=== PATIENT | female | born 1960 | race Caucasian/White ===

== ENCOUNTER 2017-10-18 16:37 | Emergency (ER) | payer OTHER ==
[~2017-10-18] VITALS: Ht 157.5 cm; Wt 86.2 kg
[~2017-10-18 16:37] MED LIST: IBUP400 PO; PROP30DR BOTHEYES; Pain Relief500 MG PO
[2017-10-18 17:04] LABS: BASOPHILS ABSOLUTE AUTO 0.02 K/mm3 (0.00-0.23); BASOPHILS PERCENT AUTO 0 % (0-2); EOSINOPHILS ABSOLUTE AUTO 0.01 K/mm3 (0.00-0.68); EOSINOPHILS PERCENT AUTO 0 % (0-6); Hematocrit 46.1 % (33.0-51.0); Hemoglobin 15.2 g/dL (11.5-16.0); IMMATURE GRAN ABSOLUTE AUTO 0.05 K/mm3 (0.00-0.10); IMMATURE GRAN PERCENT AUTO 0 % (0-1); LYMPHOCYTES ABSOLUTE AUTO 2.41 K/mm3 (0.84-5.20); LYMPHOCYTES PERCENT AUTO 15 % (21-46); MONOCYTES ABSOLUTE AUTO 0.65 K/mm3 (0.16-1.47); MONOCYTES PERCENT AUTO 4 % (4-13); Mean Corpuscular HGB 28.6 pg (26.0-34.0); Mean Corpuscular Volume 87 fL (80-100); Mean Platelet Volume 10.3 fL (9.1-12.4); NEUTROPHILS ABSOLUTE AUTO 13.24 K/mm3 (1.96-9.15); NEUTROPHILS PERCENT AUTO 81 % (41-73); Platelet Count 437 K/mm3 (150-400); RDW Coefficient Variation 13.5 % (11.7-14.2); RDW Standard Deviation 42.6 fL (35.1-46.3); Red Blood Cell Count 5.32 M/mm3 (3.80-5.20); White Blood Cell Count 16.38 K/mm3 (4.00-11.30)
[2017-10-18 17:21] LABS: Alanine Aminotransfer (ALT/SGP 19 U/L (12-78); Albumin, Blood 3.3 g/dL (3.4-5.0); Albumin/Globulin Ratio 0.7 (0.8-1.8); Alk Phos 134 U/L (50-136); Anion Gap 10 mmol/L (6-16); Aspartate Aminotrans (AST/SGOT 15 U/L (12-37); Bilirubin, Total 0.7 mg/dL (0.1-1.0); Blood Urea Nitrogen 14 mg/dL (8-24); Bun/Creatinine Ratio 31.3 (12.0-20.0); CO2, Blood 24 mmol/L (21-32); Chloride, Blood 104 mmol/L (98-108); Creatinine, Blood 0.45 mg/dL (0.40-1.00); Globulin, Blood 4.5 g/dL (2.2-4.0); Glomerular Filtration Rate >60 (60-); Glucose, Blood 110 mg/dL (70-99); Potassium, Blood 4.3 mmol/L (3.5-5.5); Sodium, Blood 138 mmol/L (136-145); Total Protein, Blood 7.8 g/dL (6.4-8.2)
[2017-10-18 19:23] LABS: Bilirubin, Urine Neg (Neg); Blood, Urine Neg (Neg); Glucose Qualitative, Urine Neg (Neg); Ketones, Urine 1+ (Neg); Leukocyte Esterase, Urine 1+ (Neg); Nitrite, Urine Neg (Neg); Protein, Urine 1+ (Neg); Urobilinogen, Urine NORM (Normal)
[2017-10-18 19:25] LABS: Appearance, Urine Clear (Clear); Color, Urine Yellow (P-Yellow)
[2017-10-18 19:29] LABS: Bacteria Few /hpf; Red Blood Cells, Urine 0-2 /hpf (0-2); Squamous Epithelial Cells Rare /hpf (Few); White Blood Cells, Urine 0-2 /hpf (0-5)
[2017-10-18] MEDS ORDERED: Zofran Odt4 MG SL (20:00)
== END 2017-10-18 20:05 | disposition home or self-care (01) ==
LOC: ER 16:37
PROVIDERS: Emergency Medicine
DX: K52.9 Noninfective gastroenteritis and colitis, unspecified (principal); D72.829 Elevated white blood cell count, unspecified; Z91.040 Latex allergy status; Z91.048 Other nonmedicinal substance allergy status; Z88.2 Allergy status to sulfonamides; Z88.5 Allergy status to narcotic agent; Z98.51 Tubal ligation status; Z90.89 Acquired absence of other organs
CPT/HCPCS: 36415; 74177; 80053; 81001; 83690; 85025; 87086; 96361; 96374; 96375; 96376; 99284; J1170; J2405; J7030; Q9967

== ENCOUNTER → 2017-11-25 | Outpatient (CLI) | payer OTHER ==
[~2017-11-25] MED LIST changes: +Bentyl20 MG PO; +Entocort EC 3 mg3 MG PO; +Zofran Odt4 MG SL
== END | disposition home or self-care (01) ==
LOC: PLD 07:45
DX: L72.0 Epidermal cyst (principal)
CPT/HCPCS: 88304

== ENCOUNTER 2018-06-28 02:36 | Inpatient (IN) | payer OTHER ==
[~2018-06-28] VITALS: Ht 157.5 cm; Wt 86.4 kg
[~2018-06-28 02:36] MED LIST changes: -Bentyl20 MG PO; -Entocort EC 3 mg3 MG PO
[2018-06-28 03:09] LABS: BASOPHILS ABSOLUTE AUTO 0.05 K/mm3 (0.00-0.23); BASOPHILS PERCENT AUTO 0 % (0-2); EOSINOPHILS ABSOLUTE AUTO 0.02 K/mm3 (0.00-0.68); EOSINOPHILS PERCENT AUTO 0 % (0-6); Hematocrit 43.6 % (33.0-51.0); IMMATURE GRAN ABSOLUTE AUTO 0.11 K/mm3 (0.00-0.10); IMMATURE GRAN PERCENT AUTO 1 % (0-1); LYMPHOCYTES ABSOLUTE AUTO 2.23 K/mm3 (0.84-5.20); LYMPHOCYTES PERCENT AUTO 11 % (21-46); MONOCYTES ABSOLUTE AUTO 0.64 K/mm3 (0.16-1.47); MONOCYTES PERCENT AUTO 3 % (4-13); Mean Corpuscular HGB Conc 32.1 g/dL (31.5-36.5); Mean Corpuscular Volume 87 fL (80-100); NEUTROPHILS ABSOLUTE AUTO 17.68 K/mm3 (1.96-9.15); NEUTROPHILS PERCENT AUTO 85 % (41-73); RDW Coefficient Variation 13.1 % (11.7-14.2); RDW Standard Deviation 41.1 fL (35.1-46.3); White Blood Cell Count 20.73 K/mm3 (4.00-11.30)
[2018-06-28 03:11] LABS: Mean Platelet Volume 10.4 fL (9.1-12.4); Platelet Count 365 K/mm3 (150-400)
[2018-06-28 03:18] LABS: Alanine Aminotransfer (ALT/SGP 16 U/L (12-78); Albumin, Blood 3.3 g/dL (3.4-5.0); Albumin/Globulin Ratio 0.7 (0.8-1.8); Alk Phos 135 U/L (50-136); Anion Gap 10 mmol/L (6-16); Aspartate Aminotrans (AST/SGOT 19 U/L (12-37); Bilirubin, Total 0.5 mg/dL (0.1-1.0); Blood Urea Nitrogen 13 mg/dL (8-24); CO2, Blood 25 mmol/L (21-32); Calcium, Blood 8.9 mg/dL (8.5-10.1); Chloride, Blood 104 mmol/L (98-108); Creatinine, Blood 0.54 mg/dL (0.40-1.00); Globulin, Blood 4.7 g/dL (2.2-4.0); Glomerular Filtration Rate >60 (60-); Glucose, Blood 173 mg/dL (70-99); Potassium, Blood 3.7 mmol/L (3.5-5.5); Sodium, Blood 139 mmol/L (136-145)
[2018-06-28 03:30] LABS: Source, Urine Clean Catch
[2018-06-28 03:32] LABS: Blood, Urine 1+ (Neg); Glucose Qualitative, Urine Neg (Neg); Ketones, Urine 2+ (Neg); Leukocyte Esterase, Urine 1+ (Neg); Nitrite, Urine Neg (Neg); Protein, Urine 2+ (Neg); Urobilinogen, Urine 1+ (Normal)
[2018-06-28 03:37] LABS: Appearance, Urine Hazy (Clear); Bilirubin, Urine 1+ (Neg); Color, Urine Yellow (P-Yellow)
[2018-06-28 03:38] LABS: Bacteria Many /hpf; Mucus Heavy (0-Heavy); Squamous Epithelial Cells Mod /hpf (Few)
[2018-06-28] MEDS ORDERED: Bentyl20 MG PO (08:55)
[2018-06-29 05:16] LABS: Hematocrit 36.9 % (33.0-51.0); Hemoglobin 11.5 g/dL (11.5-16.0); Mean Corpuscular HGB 27.6 pg (26.0-34.0); Mean Corpuscular HGB Conc 31.2 g/dL (31.5-36.5); Mean Corpuscular Volume 89 fL (80-100); Mean Platelet Volume 10.4 fL (9.1-12.4); Platelet Count 331 K/mm3 (150-400); RDW Coefficient Variation 13.2 % (11.7-14.2); RDW Standard Deviation 43.2 fL (35.1-46.3); Red Blood Cell Count 4.17 M/mm3 (3.80-5.20); White Blood Cell Count 8.85 K/mm3 (4.00-11.30)
[2018-06-29 05:33] LABS: Alanine Aminotransfer (ALT/SGP 13 U/L (12-78); Albumin, Blood 2.6 g/dL (3.4-5.0); Albumin/Globulin Ratio 0.7 (0.8-1.8); Alk Phos 103 U/L (50-136); Anion Gap 6 mmol/L (6-16); Aspartate Aminotrans (AST/SGOT 10 U/L (12-37); Bilirubin, Total 0.6 mg/dL (0.1-1.0); Blood Urea Nitrogen 10 mg/dL (8-24); Bun/Creatinine Ratio 21.3 (12.0-20.0); CO2, Blood 28 mmol/L (21-32); Calcium, Blood 7.9 mg/dL (8.5-10.1); Chloride, Blood 108 mmol/L (98-108); Creatinine, Blood 0.47 mg/dL (0.40-1.00); Globulin, Blood 3.8 g/dL (2.2-4.0); Glomerular Filtration Rate >60 (60-); Glucose, Blood 88 mg/dL (70-99); Potassium, Blood 3.5 mmol/L (3.5-5.5); Sodium, Blood 142 mmol/L (136-145); Total Protein, Blood 6.4 g/dL (6.4-8.2)
[2018-06-30 06:21] LABS: BASOPHILS ABSOLUTE AUTO 0.02 K/mm3 (0.00-0.23); BASOPHILS PERCENT AUTO 0 % (0-2); EOSINOPHILS ABSOLUTE AUTO 0.14 K/mm3 (0.00-0.68); EOSINOPHILS PERCENT AUTO 2 % (0-6); Hematocrit 39.3 % (33.0-51.0); IMMATURE GRAN ABSOLUTE AUTO 0.02 K/mm3 (0.00-0.10); IMMATURE GRAN PERCENT AUTO 0 % (0-1); LYMPHOCYTES ABSOLUTE AUTO 1.77 K/mm3 (0.84-5.20); LYMPHOCYTES PERCENT AUTO 23 % (21-46); MONOCYTES PERCENT AUTO 9 % (4-13); Mean Corpuscular HGB 27.4 pg (26.0-34.0); Mean Corpuscular HGB Conc 30.5 g/dL (31.5-36.5); Mean Corpuscular Volume 90 fL (80-100); Mean Platelet Volume 10.6 fL (9.1-12.4); NEUTROPHILS ABSOLUTE AUTO 5.21 K/mm3 (1.96-9.15); NEUTROPHILS PERCENT AUTO 66 % (41-73); Platelet Count 342 K/mm3 (150-400); RDW Coefficient Variation 13.1 % (11.7-14.2); RDW Standard Deviation 42.7 fL (35.1-46.3); Red Blood Cell Count 4.38 M/mm3 (3.80-5.20); White Blood Cell Count 7.86 K/mm3 (4.00-11.30)
[2018-06-30 06:46] LABS: Anion Gap 5 mmol/L (6-16); Blood Urea Nitrogen 7 mg/dL (8-24); Bun/Creatinine Ratio 14.9 (12.0-20.0); CO2, Blood 30 mmol/L (21-32); Chloride, Blood 107 mmol/L (98-108); Creatinine, Blood 0.47 mg/dL (0.40-1.00); Glomerular Filtration Rate >60 (60-); Glucose, Blood 87 mg/dL (70-99); Potassium, Blood 3.8 mmol/L (3.5-5.5); Sodium, Blood 142 mmol/L (136-145)
[2018-07-01] MEDS ORDERED: Entocort EC 3 mg3 MG PO (17:45)
== END 2018-07-01 18:03 | disposition home or self-care (01) | DRG 386 ==
LOC: ER 02:36 → SURS 06:31
PROVIDERS: Emergency Medicine; Hospitalist; Internal Medicine; Internal Medicine Gastroenterology
PROC: 0DBL8ZX Excision of Transverse Colon, Via Natural or Artificial Opening Endoscopic, Diagnostic (ICD-10-PCS; principal; 2018-06-30 18:15)
PROC: 0DDE8ZX Extraction of Large Intestine, Via Natural or Artificial Opening Endoscopic, Diagnostic (ICD-10-PCS; 2018-06-30 18:15)
DX: K50.912 Crohn's disease, unspecified, with intestinal obstruction (principal); N39.0 Urinary tract infection, site not specified; Z98.51 Tubal ligation status; M19.90 Unspecified osteoarthritis, unspecified site; Z68.34 Body mass index [BMI] 34.0-34.9, adult; E66.9 Obesity, unspecified; R59.0 Localized enlarged lymph nodes; R01.1 Cardiac murmur, unspecified; K63.5 Polyp of colon; K64.8 Other hemorrhoids
CPT/HCPCS: 36415; 74177; 76705; 80048; 80053; 81001; 83690; 85025; 85027; 86140; 87086; 88305; 90686; 93005; 93010; 96374; 99285-25; J0696; J1650; J2405; J3010; J7030; J7120; Q9967

== ENCOUNTER 2018-12-16 04:54 | Emergency (ER) | payer OTHER ==
[~2018-12-16] VITALS: Ht 157.5 cm; Wt 88.5 kg
[~2018-12-16 04:54] MED LIST changes: +Bentyl20 MG PO; +Entocort EC 3 mg3 MG PO
[2018-12-16] MEDS ORDERED: OXYC5 PO (05:14)
[2018-12-16 05:49] LABS: BASOPHILS ABSOLUTE AUTO 0.02 K/mm3 (0.00-0.23); BASOPHILS PERCENT AUTO 0 % (0-2); EOSINOPHILS ABSOLUTE AUTO 0.15 K/mm3 (0.00-0.68); EOSINOPHILS PERCENT AUTO 2 % (0-6); Hematocrit 35.8 % (33.0-51.0); Hemoglobin 11.4 g/dL (11.5-16.0); IMMATURE GRAN ABSOLUTE AUTO 0.03 K/mm3 (0.00-0.10); IMMATURE GRAN PERCENT AUTO 0 % (0-1); LYMPHOCYTES ABSOLUTE AUTO 1.46 K/mm3 (0.84-5.20); LYMPHOCYTES PERCENT AUTO 17 % (21-46); MONOCYTES ABSOLUTE AUTO 0.61 K/mm3 (0.16-1.47); MONOCYTES PERCENT AUTO 7 % (4-13); Mean Corpuscular HGB 28.7 pg (26.0-34.0); Mean Corpuscular HGB Conc 31.8 g/dL (31.5-36.5); Mean Corpuscular Volume 90 fL (80-100); Mean Platelet Volume 10.6 fL (9.1-12.4); NEUTROPHILS ABSOLUTE AUTO 6.58 K/mm3 (1.96-9.15); NEUTROPHILS PERCENT AUTO 74 % (41-73); Platelet Count 400 K/mm3 (150-400); RDW Standard Deviation 42.9 fL (35.1-46.3); Red Blood Cell Count 3.97 M/mm3 (3.80-5.20); White Blood Cell Count 8.85 K/mm3 (4.00-11.30)
[2018-12-16 06:08] LABS: Alanine Aminotransfer (ALT/SGP 38 U/L (12-78); Albumin, Blood 3.2 g/dL (3.4-5.0); Albumin/Globulin Ratio 0.8 (0.8-1.8); Alk Phos 114 U/L (50-136); Anion Gap 8 mmol/L (6-16); Aspartate Aminotrans (AST/SGOT 47 U/L (12-37); Bilirubin, Total 0.7 mg/dL (0.1-1.0); Blood Urea Nitrogen 6 mg/dL (8-24); Bun/Creatinine Ratio 14.1 (12.0-20.0); CO2, Blood 29 mmol/L (21-32); Calcium, Blood 8.5 mg/dL (8.5-10.1); Chloride, Blood 104 mmol/L (98-108); Creatinine, Blood 0.43 mg/dL (0.40-1.00); Glomerular Filtration Rate >60 (60-); Glucose, Blood 103 mg/dL (70-99); Potassium, Blood 3.6 mmol/L (3.5-5.5); Sodium, Blood 141 mmol/L (136-145); Total Protein, Blood 7.2 g/dL (6.4-8.2)
[2018-12-16] MEDS ORDERED: GAVILAX17 GM PO (09:26)
[2018-12-16] MEDS ORDERED: ONDA4ODT MM (09:26)
[2018-12-16] MEDS ORDERED: Ativan1 MG PO (09:26)
== END 2018-12-16 09:40 | disposition home or self-care (01) ==
LOC: ER 04:54
PROVIDERS: Emergency Medicine
DX: K56.7 Ileus, unspecified (principal); F41.9 Anxiety disorder, unspecified; Z91.040 Latex allergy status; Z88.8 Allergy status to other drugs, medicaments and biological substances; Z88.2 Allergy status to sulfonamides; Z91.048 Other nonmedicinal substance allergy status
CPT/HCPCS: 36415; 74177; 80053; 83690; 85025; 96374-59; 96375; 99284-25; J2060; J2405; J2765; Q9967

== ENCOUNTER 2018-12-18 06:11 | Emergency (ER) | payer OTHER ==
[~2018-12-18] VITALS: Ht 157.5 cm; Wt 88.5 kg
[~2018-12-18 06:11] MED LIST changes: +Ativan1 MG PO; +GAVILAX17 GM PO; +ONDA4ODT MM; +OXYC5 PO
[2018-12-18 06:55] LABS: BASOPHILS ABSOLUTE AUTO 0.04 K/mm3 (0.00-0.23); BASOPHILS PERCENT AUTO 0 % (0-2); EOSINOPHILS ABSOLUTE AUTO 0.06 K/mm3 (0.00-0.68); EOSINOPHILS PERCENT AUTO 1 % (0-6); Hematocrit 36.3 % (33.0-51.0); Hemoglobin 11.4 g/dL (11.5-16.0); IMMATURE GRAN ABSOLUTE AUTO 0.05 K/mm3 (0.00-0.10); IMMATURE GRAN PERCENT AUTO 0 % (0-1); LYMPHOCYTES ABSOLUTE AUTO 1.75 K/mm3 (0.84-5.20); LYMPHOCYTES PERCENT AUTO 15 % (21-46); MONOCYTES ABSOLUTE AUTO 0.66 K/mm3 (0.16-1.47); MONOCYTES PERCENT AUTO 6 % (4-13); Mean Corpuscular HGB 28.1 pg (26.0-34.0); Mean Corpuscular HGB Conc 31.4 g/dL (31.5-36.5); Mean Corpuscular Volume 89 fL (80-100); NEUTROPHILS ABSOLUTE AUTO 8.85 K/mm3 (1.96-9.15); NEUTROPHILS PERCENT AUTO 78 % (41-73); Platelet Count 480 K/mm3 (150-400); RDW Coefficient Variation 13.1 % (11.7-14.2); RDW Standard Deviation 43.2 fL (35.1-46.3); Red Blood Cell Count 4.06 M/mm3 (3.80-5.20); White Blood Cell Count 11.41 K/mm3 (4.00-11.30)
[2018-12-18 07:14] LABS: Alanine Aminotransfer (ALT/SGP 51 U/L (12-78); Albumin, Blood 3.2 g/dL (3.4-5.0); Albumin/Globulin Ratio 0.8 (0.8-1.8); Alk Phos 112 U/L (50-136); Anion Gap 5 mmol/L (6-16); Aspartate Aminotrans (AST/SGOT 31 U/L (12-37); Bilirubin, Total 0.4 mg/dL (0.1-1.0); Blood Urea Nitrogen 8 mg/dL (8-24); Bun/Creatinine Ratio 25.5 (12.0-20.0); CO2, Blood 30 mmol/L (21-32); Calcium, Blood 8.5 mg/dL (8.5-10.1); Chloride, Blood 104 mmol/L (98-108); Creatinine, Blood 0.31 mg/dL (0.40-1.00); Glomerular Filtration Rate >60 (60-); Glucose, Blood 115 mg/dL (70-99); Potassium, Blood 3.6 mmol/L (3.5-5.5); Sodium, Blood 139 mmol/L (136-145); Total Protein, Blood 7.2 g/dL (6.4-8.2)
[2018-12-18] MEDS ORDERED: Norco 5-325 Ta1 EACH PO (08:27)
== END 2018-12-18 08:34 | disposition home or self-care (01) ==
LOC: ER 06:11
PROVIDERS: Emergency Medicine
DX: G89.18 Other acute postprocedural pain (principal); R10.9 Unspecified abdominal pain
CPT/HCPCS: 36415; 74176; 80053; 83690; 85025; 96361; 96374; 96375; 99284-25; J1170; J2060; J7030

== ENCOUNTER 2018-12-18 15:10 | Inpatient (IN) | payer OTHER ==
[~2018-12-18] VITALS: Ht 157.5 cm; Wt 87.2 kg
[~2018-12-18 15:10] MED LIST changes: +Norco 5-325 Ta1 EACH PO
[2018-12-18 16:11] LABS: BASOPHILS ABSOLUTE AUTO 0.03 K/mm3 (0.00-0.23); BASOPHILS PERCENT AUTO 0 % (0-2); EOSINOPHILS PERCENT AUTO 1 % (0-6); Hematocrit 37.4 % (33.0-51.0); Hemoglobin 12.1 g/dL (11.5-16.0); IMMATURE GRAN ABSOLUTE AUTO 0.04 K/mm3 (0.00-0.10); IMMATURE GRAN PERCENT AUTO 0 % (0-1); LYMPHOCYTES ABSOLUTE AUTO 2.23 K/mm3 (0.84-5.20); LYMPHOCYTES PERCENT AUTO 19 % (21-46); MONOCYTES ABSOLUTE AUTO 0.74 K/mm3 (0.16-1.47); MONOCYTES PERCENT AUTO 6 % (4-13); Mean Corpuscular HGB 28.1 pg (26.0-34.0); Mean Corpuscular HGB Conc 32.4 g/dL (31.5-36.5); Mean Corpuscular Volume 87 fL (80-100); Mean Platelet Volume 10.4 fL (9.1-12.4); NEUTROPHILS ABSOLUTE AUTO 8.55 K/mm3 (1.96-9.15); NEUTROPHILS PERCENT AUTO 73 % (41-73); Platelet Count 523 K/mm3 (150-400); RDW Coefficient Variation 13.2 % (11.7-14.2); RDW Standard Deviation 42.1 fL (35.1-46.3); Red Blood Cell Count 4.31 M/mm3 (3.80-5.20); White Blood Cell Count 11.69 K/mm3 (4.00-11.30)
[2018-12-18 16:23] LABS: Alanine Aminotransfer (ALT/SGP 48 U/L (12-78); Albumin, Blood 3.5 g/dL (3.4-5.0); Albumin/Globulin Ratio 0.8 (0.8-1.8); Alk Phos 118 U/L (50-136); Anion Gap 8 mmol/L (6-16); Aspartate Aminotrans (AST/SGOT 28 U/L (12-37); Bilirubin, Total 0.5 mg/dL (0.1-1.0); Blood Urea Nitrogen 9 mg/dL (8-24); Bun/Creatinine Ratio 22.9 (12.0-20.0); CO2, Blood 28 mmol/L (21-32); Chloride, Blood 101 mmol/L (98-108); Creatinine, Blood 0.39 mg/dL (0.40-1.00); Globulin, Blood 4.2 g/dL (2.2-4.0); Glomerular Filtration Rate >60 (60-); Glucose, Blood 109 mg/dL (70-99); Potassium, Blood 3.7 mmol/L (3.5-5.5); Sodium, Blood 137 mmol/L (136-145); Total Protein, Blood 7.7 g/dL (6.4-8.2)
--- NOTE | 2018-12-18 23:00 | NUR ---
PT ADMITTED FROM ED FOR POST OP SBO. HAD A BOWEL RESECTION ON THE 7TH IN [place]. PT STABLE AT THIS TIME, A&O X3, VS WNL. RATING PAIN A 2/10 AND STATES IT IS TOLERABLE. DENIES N/V. PT VERY SLEEPY AND WANTS TO GET REST. WILL CTM AND MEDICATE FOR PAIN AND NAUSEA PRN.
[2018-12-19 04:50] LABS: BASOPHILS ABSOLUTE AUTO 0.04 K/mm3 (0.00-0.23); BASOPHILS PERCENT AUTO 0 % (0-2); EOSINOPHILS ABSOLUTE AUTO 0.12 K/mm3 (0.00-0.68); EOSINOPHILS PERCENT AUTO 1 % (0-6); Hematocrit 32.2 % (33.0-51.0); IMMATURE GRAN ABSOLUTE AUTO 0.05 K/mm3 (0.00-0.10); IMMATURE GRAN PERCENT AUTO 0 % (0-1); LYMPHOCYTES ABSOLUTE AUTO 1.99 K/mm3 (0.84-5.20); LYMPHOCYTES PERCENT AUTO 18 % (21-46); MONOCYTES ABSOLUTE AUTO 0.89 K/mm3 (0.16-1.47); MONOCYTES PERCENT AUTO 8 % (4-13); Mean Corpuscular HGB 27.5 pg (26.0-34.0); Mean Corpuscular HGB Conc 31.1 g/dL (31.5-36.5); Mean Corpuscular Volume 89 fL (80-100); Mean Platelet Volume 10.2 fL (9.1-12.4); NEUTROPHILS ABSOLUTE AUTO 8.03 K/mm3 (1.96-9.15); NEUTROPHILS PERCENT AUTO 72 % (41-73); Platelet Count 421 K/mm3 (150-400); RDW Coefficient Variation 13.2 % (11.7-14.2); Red Blood Cell Count 3.63 M/mm3 (3.80-5.20); White Blood Cell Count 11.12 K/mm3 (4.00-11.30)
[2018-12-19 05:03] LABS: Anion Gap 9 mmol/L (6-16); Blood Urea Nitrogen 10 mg/dL (8-24); Bun/Creatinine Ratio 25.6 (12.0-20.0); CO2, Blood 26 mmol/L (21-32); Calcium, Blood 7.7 mg/dL (8.5-10.1); Chloride, Blood 107 mmol/L (98-108); Creatinine, Blood 0.39 mg/dL (0.40-1.00); Glomerular Filtration Rate >60 (60-); Glucose, Blood 101 mg/dL (70-99); Potassium, Blood 3.6 mmol/L (3.5-5.5); Sodium, Blood 142 mmol/L (136-145)
--- NOTE | 2018-12-19 13:20 | NUR ---
DR BUSTAMANTE HERE RECENTLY.
--- NOTE | 2018-12-19 18:05 | NUR ---
SHIFT SUMMARY PT BEEN ASSISTED WITH ADL'S PRN. PT BEEN UP TO BATHROOM, WALKED IN HALLWAY EARLIER TODAY. PT BEEN MED FOR PAIN MULT TIMES TODAY. DISCUSSED GAS PAIN AND AMBULATING WITH PT. PT REPORTS BURPING BUT NOT PASSING ANY GAS. DR BUSTAMANTE WAS IN TO SEE PT EARLIER TODAY.
--- NOTE | 2018-12-20 03:37 | NUR ---
SHIFT SUMMARY: PT C/O PAIN IN BEGINNING OF SHIFT AND REPORTS POOR PAIN MANAGEMENT WITH FENTANYL. NEW ORDER OF DILAUDID. PT GIVEN 1 MG AND STATES PAIN HAS IMPROVED AND SHE IS FEELING BETTER. PT OOB TO BATHROOM SEVERAL TIMES. AMBULATED THE APONTE ONCE. EDUCATED ON IMPORTANCE OF WALKING. WILL GIVE REGLAN THIS AM. DENIES PASSING GAS. HAS NOT HAD BM SINCE YESTERDAY MORNING. VOIDING WELL. POOR PO INTAKE SHE REPORTS FEELING WORSE AFTER DRINKING FLUIDS. IV FLUIDS INFUSING.
--- NOTE | 2018-12-20 07:00 | NUR ---
REPORT FROM JULIA CLIFFORD. ASSUMED PT CARE.
--- NOTE | 2018-12-20 07:15 | NUR ---
PT SITTING UP IN BED. C/O PAIN 01/12. WILL PROVIDE PRN MEDICATION. ASSESSMENT CHARTED. PT STATES SHE HAD A SMALL BM (SMALL BROWN BM TO COMMODE NOTED). PT STATES SHE IS PASSING GAS.
--- NOTE | 2018-12-20 07:50 | NUR ---
PT MEDICATED WITH 1MG IV DILAUDID PER EMAR. PT C/O SOME DISCOMFORT TO IV SIGHT. AREA SWOLLEN AND LOOKS INFILTRATED. IV REMOVED. PRESSURE DRESSING PLACED AND WARM COMPRESS PROVIDED.
--- NOTE | 2018-12-20 08:40 | NUR ---
PT MEDICATED WITH MEDS PER EMAR. PT STATES PAIN IMPROVED. PT TALKING WITH SOMEONE ON PHONE. NEW 18G TO LEFT WRIST STARTED. PT JOEL WELL. IVF RESUMED.
--- NOTE | 2018-12-20 09:15 | NUR ---
PT TO RR. THEN AMB IN APONTE WITH SPOUSE.
--- NOTE | 2018-12-20 10:39 | NUR ---
PT DENIES NEEDS. NURSE ROUNDING COMPLETE BY COORDINATORS.
--- NOTE | 2018-12-20 11:50 | NUR ---
PT UP TO RR. DENIES NEEDS.
--- NOTE | 2018-12-20 12:50 | NUR ---
PT AMBULATING IN HALLS.
--- NOTE | 2018-12-20 12:57 | NUR ---
DR KEN TO ROOM FOR EVAL.
--- NOTE | 2018-12-20 13:40 | NUR ---
PT MEDICATED WITH DILAUDID AND SIMETHICONE FOR GAS AND ABD PAIN. PT AMB WITHIN ROOM AND IN APONTE WELL.
[2018-12-20] MEDS ORDERED: Entocort EC 3 mg3 MG PO (14:38)
--- NOTE | 2018-12-20 15:36 | NUR ---
PT RESTING. NADN. WILL CONT TO MONITOR. UP TO RR INDEPENDENTLY.
--- NOTE | 2018-12-20 17:56 | NUR ---
PT VOMITED AFTER EATING SOME SOUP. STATES NAUSEA IMPROVED AFTER. PT MEDICATED WITH 1MG DILAUDID FOR PAIN.
--- NOTE | 2018-12-20 18:41 | NUR ---
PT MORE COMFORTABLE. DENIES PAIN. DENIES NAUSEA. SPOUSE AT BEDSIDE. BOTH WATCHING TV.
--- NOTE | 2018-12-20 18:51 | NUR ---
PT UP AMBULATING IN APONTE WITH SPOUSE.
--- NOTE | 2018-12-21 04:25 | NUR ---
PT IS S/P BOWEL RESECTION ON 12/09 AND HAS DEVELOPED POST OP ILEUS. PT DOES HAVE BT BUT STATES HASNT HAD ANY MORE FLATUS OR BM. ALSO STATES PAIN HAS INCREASED SOME. DID CALL DR. PIZARRO AND OBTAINED ORDER FOR TORADOL. PT WILL TRY TO LIMIT NARCOTIC USE. CONT SCHEDULED REGLAN AND PT ONLY TAKING ICE CHIPS AT THIS TIME. ENCOURAGE MOBILITY, CALL LIGHT IN REACH.
[2018-12-21 05:56] LABS: BASOPHILS ABSOLUTE AUTO 0.03 K/mm3 (0.00-0.23); BASOPHILS PERCENT AUTO 0 % (0-2); EOSINOPHILS ABSOLUTE AUTO 0.13 K/mm3 (0.00-0.68); EOSINOPHILS PERCENT AUTO 1 % (0-6); Hematocrit 33.9 % (33.0-51.0); Hemoglobin 10.6 g/dL (11.5-16.0); IMMATURE GRAN ABSOLUTE AUTO 0.05 K/mm3 (0.00-0.10); IMMATURE GRAN PERCENT AUTO 0 % (0-1); LYMPHOCYTES ABSOLUTE AUTO 1.64 K/mm3 (0.84-5.20); LYMPHOCYTES PERCENT AUTO 15 % (21-46); MONOCYTES ABSOLUTE AUTO 0.84 K/mm3 (0.16-1.47); MONOCYTES PERCENT AUTO 8 % (4-13); Mean Corpuscular HGB 27.6 pg (26.0-34.0); Mean Corpuscular HGB Conc 31.3 g/dL (31.5-36.5); Mean Corpuscular Volume 88 fL (80-100); Mean Platelet Volume 10.7 fL (9.1-12.4); NEUTROPHILS ABSOLUTE AUTO 8.46 K/mm3 (1.96-9.15); NEUTROPHILS PERCENT AUTO 76 % (41-73); Platelet Count 437 K/mm3 (150-400); RDW Coefficient Variation 13.1 % (11.7-14.2); RDW Standard Deviation 42.1 fL (35.1-46.3); Red Blood Cell Count 3.84 M/mm3 (3.80-5.20); White Blood Cell Count 11.15 K/mm3 (4.00-11.30)
[2018-12-21 06:09] LABS: Anion Gap 8 mmol/L (6-16); Blood Urea Nitrogen 5 mg/dL (8-24); Bun/Creatinine Ratio 14.9 (12.0-20.0); CO2, Blood 27 mmol/L (21-32); Calcium, Blood 8.1 mg/dL (8.5-10.1); Chloride, Blood 105 mmol/L (98-108); Creatinine, Blood 0.34 mg/dL (0.40-1.00); Glomerular Filtration Rate >60 (60-); Glucose, Blood 81 mg/dL (70-99); Potassium, Blood 3.5 mmol/L (3.5-5.5); Sodium, Blood 140 mmol/L (136-145)
--- NOTE | 2018-12-21 15:41 | NUR ---
PAIN: NOTIFIED DR. Otto KEN THAT ULTRAM IS NOT WORKING FOR PAIN. RCD NEW ORDER FOR NORCO 5/325 PO EVERY 4 HRS PRN FOR PAIN.
--- NOTE | 2018-12-21 18:34 | NUR ---
SHIFT SUMMARY: BT ARE HYPOACTIVE. HOWEVER, BT HAS IMPROVED SINCE ASSESSMENT THIS MORNING. PT WAS ABLE TO HAVE A BM. NO FLATUS. SHE HAS AMBULATED THE HALLS UNASSISTED WITH STEADY GAIT SEVERAL TIMES T/O DAY. PAIN HAS BEEN DIFFICULT TO CONTROL. PAIN MEDICATIONS HAVE CHANGED T/O DAY. SHE REPORTS ADEQUATE PAIN CONTROL WITH 1 PO NORCO. SHE IS TOLERATING PO INTAKE. WILL CTM UNTIL REPORT GIVEN TO NEXT RN.
--- NOTE | 2018-12-21 20:23 | NUR ---
Initial Visit: Palliative Care Consult for goals of care. Pt is A&Ox4 and reports a tolerable 4/10 pain in her abdomen. She reports her pain is managed with current regimen. Pt denies anxiety, depression, and dyspnea at this time. Pt reports no roman catholic beliefs. Engaged in therapeutic conversation regarding goals of care. Pt reports that she lives at home with her and 2 autistic adult sons. Pt reports adequate support for any needs of care from her family. Pt states that she is hopeful that she will get to go home tomorrow. She reports having a bowelmovement today. Educated Pt on the use of opioid medications and the risk of constipation. Educated Pt on the use of stool softeners, adequate amounts of water and activity to help promote routine BMs. Discussed AD/POLST with Pt and she expresses interest. Educated Pt on each section including risk factors of life sustaining measures. Pt reports that she will complete one of the forms at home after discussing with her . Left an extra copy of each form upon Pt's request for her to have one as well. Pt reports no other concerns at this time. Plan: Obtain copy of AD/POLST once completed. Will remain available.
--- NOTE | 2018-12-22 05:28 | NUR ---
DID VERY WELL DURING NIGHT. PAIN HAS CONT TO IMPROVE, DENIES ANY N/V. STATES PASSING FLATUS AND MORE STOOL. HAS BEEN TOLERATING PO. PT IS HOPEFUL TO BE DC'D HOME TODAY. CALL LIGHT IN REACH. WILL REPORT OFF TO NEXT SHIFT.
--- NOTE | 2018-12-22 07:00 | NUR ---
REPORT FROM JULIA CLIFFORD. ASSUMED PT CARE.
--- NOTE | 2018-12-22 07:37 | NUR ---
ASSESSMENT CHARTED. PT ALERT AND ORIENTED. PT DENIES PAIN/NAUSEA AT THIS TIME. PT UP INDEPENDENTLY TO RR.
--- NOTE | 2018-12-22 08:21 | NUR ---
PT WORKING ON BREAKFAST. MEDICATED PER EMAR.
--- NOTE | 2018-12-22 09:58 | NUR ---
PT MEDICATED WITH ZOFRAN FOR C/O NAUSEA. PT STATES IT COMES AND GOES.
--- NOTE | 2018-12-22 10:31 | NUR ---
PT RESTING IN POSITION OF COMFORT. DENIES NEEDS.
--- NOTE | 2018-12-22 11:48 | NUR ---
PT MEDICATED WITH SCHED REGLAN. PT C/O SOME GRIPPING NAUSEA. DENIES VOMITING.
--- NOTE | 2018-12-22 12:40 | NUR ---
PT AMBULATING IN HALLWAY.
--- NOTE | 2018-12-22 13:05 | NUR ---
PT MEDICATED FOR C/O ABD PAIN WITH TORADOL, SIMETHICONE AND NORCO.
--- NOTE | 2018-12-22 13:45 | NUR ---
PT STILL HAVING PAIN 03/[address] KEN AWARE. NO NEW ORDERS.
--- NOTE | 2018-12-22 14:15 | NUR ---
DR KEN TO ROOM.
--- NOTE | 2018-12-22 15:27 | NUR ---
PT STATES PAIN VERY MUCH IMPROVED. EXPLAINED PLAN FOR UPPER GI IMAGING. PT AGREEABLE. EXPLAINED PT TO BE NPO AT MIDNIGHT.
--- NOTE | 2018-12-22 16:53 | NUR ---
PT MEDICATED WITH 0.5MG DILAUDID PER ORDERS. 200ML GREENISH BROWN EMESIS.
--- NOTE | 2018-12-22 17:15 | NUR ---
PT FEELS A LITTLE BETTER. DECREASED APPETITE. EATING A LITTLE OF DINNER.
--- NOTE | 2018-12-22 17:45 | NUR ---
Mrs. farrell was politely dismissive of pastoral care. Advised clinical nursing professor would be available for emotional support.
--- NOTE | 2018-12-22 17:56 | NUR ---
PT MEDICATED WITH REGLAN PER EMAR. UP TO RR INDEPENDENTLY.
--- NOTE | 2018-12-22 19:00 | NUR ---
PT MEDICATED WITH ZOFRAN AND DILAUDID BY ANOTHER STAFF MEMBER. PT NAUSEATED AND VOMITED APPROX 150ML PER MEDICATING RN. PT STATES SHE TOLERATES MORPHINE BETTER. WILL HAVE FOOD SERVICE WORKER COMMUNICATE THAT TO PROVIDER.
--- NOTE | 2018-12-22 21:42 | NUR ---
PT C/O N/V THROUGHOUT DAY AFTER GIVEN IV DILAUDID, DESPITE BEING GIVEN ZOFRAN BEFORE ADMINISTRATION. PT REPORTS ORAL PAIN MEDS AND FENTANYL ARE NOT EFFECTIVE. CONSULTED WITH DR. DALEY REGARDING PT COMPLAINTS. RECOMMENDED IV MORPHINE PT STATES SHE HAS HAD THIS IN THE PAST AND REMEMBERS IT BEING EFFECTIVE. NO NEW ORDERS. RECOMMENDED TO GIVE NAUSEA MEDS 15 MIN PRIOR TO DILAUDID ADMINISTRATION AND CALL BACK IF INEFFECTIVE. WILL CTM.
[2018-12-23 04:41] LABS: BASOPHILS ABSOLUTE AUTO 0.03 K/mm3 (0.00-0.23); BASOPHILS PERCENT AUTO 0 % (0-2); EOSINOPHILS ABSOLUTE AUTO 0.14 K/mm3 (0.00-0.68); EOSINOPHILS PERCENT AUTO 1 % (0-6); Hematocrit 33.9 % (33.0-51.0); Hemoglobin 10.8 g/dL (11.5-16.0); IMMATURE GRAN ABSOLUTE AUTO 0.07 K/mm3 (0.00-0.10); IMMATURE GRAN PERCENT AUTO 0 % (0-1); LYMPHOCYTES ABSOLUTE AUTO 1.74 K/mm3 (0.84-5.20); LYMPHOCYTES PERCENT AUTO 10 % (21-46); MONOCYTES ABSOLUTE AUTO 1.16 K/mm3 (0.16-1.47); MONOCYTES PERCENT AUTO 7 % (4-13); Mean Corpuscular HGB Conc 31.9 g/dL (31.5-36.5); Mean Corpuscular Volume 88 fL (80-100); Mean Platelet Volume 10.9 fL (9.1-12.4); NEUTROPHILS ABSOLUTE AUTO 14.24 K/mm3 (1.96-9.15); NEUTROPHILS PERCENT AUTO 82 % (41-73); Platelet Count 462 K/mm3 (150-400); RDW Coefficient Variation 12.9 % (11.7-14.2); RDW Standard Deviation 41.9 fL (35.1-46.3); Red Blood Cell Count 3.86 M/mm3 (3.80-5.20); White Blood Cell Count 17.38 K/mm3 (4.00-11.30)
--- NOTE | 2018-12-23 04:50 | NUR ---
SHIFT SUMMARY: PT HAS DONE WELL THIS SHIFT. PAIN MANAGED WITH 0.5 MG OF IV DILAUDID. PT REPORTS SOME NAUSEA AFTER ADMIN. GIVEN REGLAN AND ZOFRAN. IV DILAUDID PUSHED OVER 2-3 MIN. NO EMESIS. PT ABLE TO SLEEP T/O SHIFT. JOEL PO FLUIDS. NEW IV PLACED IN RIGHT FOREARM. PT REPORTS PASSING SOME FLATUS. LAST BM WAS YESTERDAY. PLAN FOR UPPER GI THIS AM.
[2018-12-23 05:07] LABS: Alanine Aminotransfer (ALT/SGP 28 U/L (12-78); Albumin, Blood 3.1 g/dL (3.4-5.0); Alk Phos 108 U/L (50-136); Anion Gap 8 mmol/L (6-16); Aspartate Aminotrans (AST/SGOT 12 U/L (12-37); Bilirubin, Total 0.7 mg/dL (0.1-1.0); Blood Urea Nitrogen 7 mg/dL (8-24); Bun/Creatinine Ratio 18.5 (12.0-20.0); CO2, Blood 28 mmol/L (21-32); Calcium, Blood 8.2 mg/dL (8.5-10.1); Chloride, Blood 101 mmol/L (98-108); Creatinine, Blood 0.38 mg/dL (0.40-1.00); Globulin, Blood 3.2 g/dL (2.2-4.0); Glomerular Filtration Rate >60 (60-); Glucose, Blood 125 mg/dL (70-99); Potassium, Blood 3.5 mmol/L (3.5-5.5); Sodium, Blood 137 mmol/L (136-145); Total Protein, Blood 6.3 g/dL (6.4-8.2)
--- NOTE | 2018-12-23 09:52 | NUR ---
PATIENT RETURNED TO ROOM FROM XR AT THIS TIME. PATIENT UNABLE TO COMPLETE SBFT D/T NAUSEA. WILL MONITOR.
--- NOTE | 2018-12-23 18:05 | NUR ---
SHIFT SUMMARY PATIENT STATES SHE ONLY HAS ABD PAIN IF SHE DRINKS FLUIDS. NO NAUSEA. IVF INFUSING PER ORDER. UP TO AMBULATE IN APONTE. UP TO SHOWER. PLAN FOR NG TUBE PLACEMENT IN AM FOR CONTRAST AND SBFT. NO ACUTE CHANGES OR C/O. CONT TO PASS FLATUS.
--- NOTE | 2018-12-24 04:09 | NUR ---
SHIFT SUMMARY: PT NPO AFTER MIDNIGHT FOR SCHED UPPER GI LATER THIS AM. PLAN FOR NG TUBE INSERTION PRIOR TO PROCEDURE TO ENUSRE TOLERANCE OF CONTRAST. PAIN SEEMS TO BE IMPROVING. GIVEN 0.5 OF DILAUDID PER EMAR WITHOUT C/O NAUSEA. GIVEN ZOFRAN BEFORE EACH ADMINISTRATION. PT OOB INDEPENDENTLY TO BATHROOM TO VOID. NO BM'S T/O NIGHT. PT REPORTS PASSING SOME FLATUS. DISCUSSED WITH PT ABOUT REMOVAL OF MIDLINE ABD DELICIA. NEED ORDERS. WILL TALK WITH DAY NURSE TO CONSULT WITH DR KEN ABOUT POSSIBLE REMOVAL.
--- NOTE | 2018-12-24 07:58 | NUR ---
NG TUBE PLACED AT 0758 FOR ORAL CONTRAST PER MD ORDER
--- NOTE | 2018-12-24 09:00 | NUR ---
PATIENT TO IMAGING FOR SBFT. NG PLACED BY CN THIS AM PER ORDER FOR CONTRAST.
--- NOTE | 2018-12-24 10:48 | NUR ---
PATIENT RETURNED TO ROOM FROM IMAGING. SBFT COMPLETED. NG REMOVED. PATIENT TOLERATED WELL.
--- NOTE | 2018-12-24 18:19 | NUR ---
SHIFT SUMMARY PATIENT STRUGGLED WITH N/V TODAY AFTER SBFT. PHENERGAN ADM PER NEW ORDER RESOLVED NAUSEA. PATIENT C/O ANXIETY. DR ELLIOTT HERE TO SEE. ATIVAN AND PAIN MED TITRATED TO PATIENT COMFORT. PATIENT NOW SLEEPING. RESP E/U. SPOUSE IN TO SEE.
--- NOTE | 2018-12-24 18:45 | NUR ---
PATIENT AWAKE AT THIS TIME AND CALLED FOR ASSISTANCE. PATIENT SITTING UP IN BED, "I'M TRYING TO FIGURE OUT WHAT THIS IS ON MY BED?...IT'S LIKE A WAR...A GAME I NEED TO DO...WHAT AM I SUPPOSED TO DO?...I'M SO CONFUSED. HOW LONG WAS I ASLEEP?" ASSURED PATIENT THAT IT LIKELY IS A REACTION TO THE NARCOTIC PAIN MEDICATION AND ATIVAN.PATIENT CALMED. ZOFRAN ADMIN FOR C/O NAUSEA. WILL REPORT TO NOC RN.
[2018-12-25 05:01] LABS: BASOPHILS ABSOLUTE AUTO 0.04 K/mm3 (0.00-0.23); BASOPHILS PERCENT AUTO 0 % (0-2); EOSINOPHILS ABSOLUTE AUTO 0.04 K/mm3 (0.00-0.68); EOSINOPHILS PERCENT AUTO 0 % (0-6); Hematocrit 37.9 % (33.0-51.0); Hemoglobin 12.1 g/dL (11.5-16.0); IMMATURE GRAN ABSOLUTE AUTO 0.04 K/mm3 (0.00-0.10); IMMATURE GRAN PERCENT AUTO 0 % (0-1); LYMPHOCYTES ABSOLUTE AUTO 1.86 K/mm3 (0.84-5.20); LYMPHOCYTES PERCENT AUTO 13 % (21-46); MONOCYTES ABSOLUTE AUTO 1.13 K/mm3 (0.16-1.47); MONOCYTES PERCENT AUTO 8 % (4-13); Mean Corpuscular HGB 28.3 pg (26.0-34.0); Mean Corpuscular HGB Conc 31.9 g/dL (31.5-36.5); Mean Corpuscular Volume 89 fL (80-100); Mean Platelet Volume 10.8 fL (9.1-12.4); NEUTROPHILS ABSOLUTE AUTO 11.28 K/mm3 (1.96-9.15); NEUTROPHILS PERCENT AUTO 78 % (41-73); Platelet Count 548 K/mm3 (150-400); RDW Coefficient Variation 13.3 % (11.7-14.2); RDW Standard Deviation 43.4 fL (35.1-46.3); Red Blood Cell Count 4.27 M/mm3 (3.80-5.20); White Blood Cell Count 14.39 K/mm3 (4.00-11.30)
[2018-12-25 05:31] LABS: Alanine Aminotransfer (ALT/SGP 20 U/L (12-78); Albumin, Blood 3.3 g/dL (3.4-5.0); Albumin/Globulin Ratio 0.9 (0.8-1.8); Alk Phos 105 U/L (50-136); Anion Gap 9 mmol/L (6-16); Aspartate Aminotrans (AST/SGOT 12 U/L (12-37); Bilirubin, Total 0.6 mg/dL (0.1-1.0); Blood Urea Nitrogen 9 mg/dL (8-24); Bun/Creatinine Ratio 18.6 (12.0-20.0); CO2, Blood 29 mmol/L (21-32); Calcium, Blood 8.8 mg/dL (8.5-10.1); Chloride, Blood 104 mmol/L (98-108); Creatinine, Blood 0.48 mg/dL (0.40-1.00); Globulin, Blood 3.6 g/dL (2.2-4.0); Glomerular Filtration Rate >60 (60-); Glucose, Blood 119 mg/dL (70-99); Magnesium, Blood 2.3 mg/dL (1.6-2.4); Phosphorus, Blood 4.7 mg/dL (2.5-4.9); Potassium, Blood 3.6 mmol/L (3.5-5.5); Sodium, Blood 142 mmol/L (136-145); Total Protein, Blood 6.9 g/dL (6.4-8.2)
--- NOTE | 2018-12-25 14:52 | NUR ---
EMESIS DR. ELLIOTT NOTIFIED THAT PT HAD 1200ML OF EMESIS THIS AFTERNOON. MARISA MACHUCA'D SINCE PT VOMITED AFTER TAKING MEDICATION. WILL CONTINUE TO MONITOR AT THIS TIME.
--- NOTE | 2018-12-25 18:28 | NUR ---
SHIFT SUMMARY PT HAS HAD EPISODES OF N/V DURING THE SHIFT. SHE HAS ALSO HAD ANXIETY; PT REPORTED HER ANXIETY DECREASED AFTER TAKING XANAX. PT HAS BEEN ENCOURAGED TO AMBULATE IN THE HALWAYS; SHE HAS DONE MINIMAL AMBULATION R/T FEELING SICK. SHE HAS ALSO COMPLAINED OF ABD CRAMPING WHICH HAS DECREASED THIS AFTERNOON. VSS. WILL CONTINUE TO MONITOR UNTIL REPORT TO ONCOMING RN.
--- NOTE | 2018-12-26 04:13 | NUR ---
SHIFT SUMMARY PT ADMITTED W/ SBO FOLLOWING A COLON RESECTION IN [facility] ON 12/09. SHE HAD SOME ABDOMINAL CRAMPING THIS EVENING, TX WITH WARM BLANKETS TO SITE AND TYLENOL. PT HAS DENIED N/V SO FAR TONIGHT. MEDICATED FOR ANXIETY PER EMAR. PT IS PASSING FLATUS AND HAD A BM YESTERDAY DAY SHIFT. CLINIMIX INFUSING AT 50ML/HR. SHE HAS ONLY TAKEN CLEAR LIQUIDS THOUGH SHE COULD START FULLS AT ANY TIME. STERI-STRIPS TO MIDLINE ABD C/D/I. PT IS A&O, INDEP IN THE ROOM, MAKES NEEDS KNOWN. WILL CTM UNTIL PASS TO NEXT SHIFT.
--- NOTE | 2018-12-26 19:03 | NUR ---
SHIFT SUMMARY PT HAS DENIED N/V T/O THE DAY. SHE STILL COMPLAINS OF ABD CRAMPING. SHE TOLERATED FULL LIQUID DIET WELL. SHE AMBULATED IN THE HALWAYS INDEPEDENTLY. VSS. WILL CONTINUE TO MONITOR UNTIL REPORT TO ONCOMING RN.
[2018-12-27 04:09] LABS: BASOPHILS ABSOLUTE AUTO 0.05 K/mm3 (0.00-0.23); BASOPHILS PERCENT AUTO 1 % (0-2); EOSINOPHILS ABSOLUTE AUTO 0.44 K/mm3 (0.00-0.68); EOSINOPHILS PERCENT AUTO 5 % (0-6); Hematocrit 35.9 % (33.0-51.0); Hemoglobin 11.2 g/dL (11.5-16.0); IMMATURE GRAN ABSOLUTE AUTO 0.04 K/mm3 (0.00-0.10); IMMATURE GRAN PERCENT AUTO 0 % (0-1); LYMPHOCYTES ABSOLUTE AUTO 1.43 K/mm3 (0.84-5.20); LYMPHOCYTES PERCENT AUTO 15 % (21-46); MONOCYTES ABSOLUTE AUTO 1.12 K/mm3 (0.16-1.47); MONOCYTES PERCENT AUTO 12 % (4-13); Mean Corpuscular HGB 27.8 pg (26.0-34.0); Mean Corpuscular HGB Conc 31.2 g/dL (31.5-36.5); Mean Corpuscular Volume 89 fL (80-100); NEUTROPHILS ABSOLUTE AUTO 6.61 K/mm3 (1.96-9.15); NEUTROPHILS PERCENT AUTO 68 % (41-73); Platelet Count 429 K/mm3 (150-400); RDW Standard Deviation 42.6 fL (35.1-46.3); Red Blood Cell Count 4.03 M/mm3 (3.80-5.20); White Blood Cell Count 9.69 K/mm3 (4.00-11.30)
[2018-12-27 04:27] LABS: Alanine Aminotransfer (ALT/SGP 15 U/L (12-78); Albumin, Blood 2.9 g/dL (3.4-5.0); Albumin/Globulin Ratio 0.9 (0.8-1.8); Alk Phos 85 U/L (50-136); Anion Gap 6 mmol/L (6-16); Aspartate Aminotrans (AST/SGOT 10 U/L (12-37); Bilirubin, Total 0.7 mg/dL (0.1-1.0); Blood Urea Nitrogen 12 mg/dL (8-24); Bun/Creatinine Ratio 30.5 (12.0-20.0); CO2, Blood 29 mmol/L (21-32); Chloride, Blood 107 mmol/L (98-108); Creatinine, Blood 0.39 mg/dL (0.40-1.00); Globulin, Blood 3.1 g/dL (2.2-4.0); Glomerular Filtration Rate >60 (60-); Glucose, Blood 102 mg/dL (70-99); Magnesium, Blood 2.4 mg/dL (1.6-2.4); Phosphorus, Blood 3.6 mg/dL (2.5-4.9); Potassium, Blood 3.9 mmol/L (3.5-5.5); Sodium, Blood 142 mmol/L (136-145)
--- NOTE | 2018-12-27 07:51 | NUR ---
SHIFT SUMMARY PT IS S/P COLON RESECTION AND POST OP ILEUS. AT THIS TIME SHE IS TAKING FULL LIQUIDS AND FEELS READY TO ADVANCE TO REGULAR DIET, PASSING FLATUS AND HAS HAD MULTIPLE STOOLS. CLINIMIX INFUSING AT 50ML/HR. NO N/V THIS SHIFT, ABD CRAMPING HAS IMPROVED WELL. XANAX PER EMAR FOR SLEEP/ANXIETY.
[2018-12-27] MEDS ORDERED: ALPR.25 PO (12:46)
[2018-12-27] MEDS ORDERED: OMEPRAZOLE MAGN20 MG PO (12:47)
[2018-12-27] MEDS ORDERED: MIRALAX119 GM PO (12:48)
--- NOTE | 2018-12-27 13:03 | NUR ---
DISCHARGE SCRIPTS CALLED TO [facility], HARD SCRIPT FOR XANAX GIVEN, PT STATES FEELS COMFORTABLE WITH DISCHARGE.
== END 2018-12-27 13:10 | disposition home or self-care (01) | DRG 389 ==
LOC: ER 15:10 → SURS 15:11
PROVIDERS: Family Medicine; Hospitalist; Physician Assistant; ADMIT Hospitalist
DX: K56.600 Partial intestinal obstruction, unspecified as to cause (principal); K50.90 Crohn's disease, unspecified, without complications; K56.7 Ileus, unspecified; D63.8 Anemia in other chronic diseases classified elsewhere; M19.90 Unspecified osteoarthritis, unspecified site; F41.9 Anxiety disorder, unspecified; Z91.040 Latex allergy status; Z88.2 Allergy status to sulfonamides; Z88.8 Allergy status to other drugs, medicaments and biological substances; Z91.048 Other nonmedicinal substance allergy status
CPT/HCPCS: 36415; 74018; 74250; 80048; 80053; 83690; 83735; 84100; 85025; 96361; 96372; 96374; 96375; 96376; 99284-25; A9270-GY; C9113; G0378; J1170; J1650; J1885; J2060; J2270; J2405; J2550; J2765; J3010; J7030; J7131

== ENCOUNTER → 2019-04-26 | Outpatient (CLI) | payer OTHER ==
[~2019-04-26] MED LIST changes: +ALPR.25 PO; +MIRALAX119 GM PO; +OMEPRAZOLE MAGN20 MG PO
== END | disposition home or self-care (01) ==
LOC: LAB EV 06:30
DX: K50.00 Crohn's disease of small intestine without complications (principal)
CPT/HCPCS: 83993; 87493

== ENCOUNTER → 2019-05-10 | Outpatient (CLI) | payer OTHER ==
[2019-05-11 15:18] LABS: HPV 16 Negative (Negative); HPV 18 Negative (Negative); HPV OTHER HR TYPES Negative (Negative)
== END ==
LOC: LAB SHORT 11:01 → LAB 11:01
PROVIDERS: Nurse Practitioner Family
DX: Z01.411 Encounter for gynecological examination (general) (routine) with abnormal findings (principal)
CPT/HCPCS: 87624; G0145

== ENCOUNTER → 2025-01-16 | Outpatient (CLI) | payer MEDICARE, OTHER ==
[~2025-01-16] MED LIST changes: +Amlodipine Bes2.5 MG; +ENTYVIO300 M1; +MELO7.5 PO; +Vitamin D1000 UNI1 PO
[2025-01-16 16:07] LABS: BASOPHILS ABSOLUTE AUTO 0.03 K/mm3 (0.00-0.23); BASOPHILS PERCENT AUTO 0 % (0-2); EOSINOPHILS ABSOLUTE AUTO 0.06 K/mm3 (0.00-0.68); EOSINOPHILS PERCENT AUTO 1 % (0-6); Hematocrit 42.4 % (33.0-51.0); Hemoglobin 13.8 g/dL (11.5-16.0); IMMATURE GRAN ABSOLUTE AUTO 0.02 K/mm3 (0.00-0.10); IMMATURE GRAN PERCENT AUTO 0 % (0-1); LYMPHOCYTES PERCENT AUTO 31 % (21-46); MONOCYTES ABSOLUTE AUTO 0.62 K/mm3 (0.16-1.47); MONOCYTES PERCENT AUTO 8 % (4-13); Mean Corpuscular HGB 28.8 pg (26.0-34.0); Mean Corpuscular HGB Conc 32.5 g/dL (31.5-36.5); Mean Corpuscular Volume 89 fL (80-100); NEUTROPHILS ABSOLUTE AUTO 4.69 K/mm3 (1.96-9.15); NEUTROPHILS PERCENT AUTO 60 % (41-73); Platelet Count 325 K/mm3 (150-400); RDW Coefficient Variation 13.2 % (11.7-14.2); RDW Standard Deviation 42.8 fL (35.1-46.3); Red Blood Cell Count 4.79 M/mm3 (3.80-5.20); White Blood Cell Count 7.82 K/mm3 (4.00-11.30)
[2025-01-16 16:12] LABS: Bun/Creatinine Ratio 20.9 (12.0-20.0); Creatinine, Blood 0.67 mg/dL (0.40-1.00); Potassium, Blood 3.8 mmol/L (3.5-5.5)
== END ==
LOC: LAB SHORT 16:02 → LAB 16:02
PROVIDERS: Physician Assistant Medical
DX: R10.32 Left lower quadrant pain (principal)
CPT/HCPCS: 80048; 85025